=== PATIENT | male | born 1995 | race African-American/Black ===

== ENCOUNTER 2018-07-29 15:55 | Outpatient (CLI) | payer OTHER ==
--- NOTE | 2018-07-29 16:20 | RAD ---
2 views right knee Patellar pain. AP and lateral views right knee obtained. No evidence of acute fractures, subluxations or bony lesion seen. IMPRESSION: normal 2 views right knee.
== END 2018-07-29 15:56 | disposition home or self-care (01) ==
LOC: BICRAD 15:55
PROVIDERS: ATTEND Family Medicine
DX: M25.561 Pain in right knee (principal)